=== PATIENT | male | born 1955 | race Caucasian/White ===

== ENCOUNTER 2021-04-03 19:31 | Inpatient (IN) ==
[2021-04-03 20:28] LABS: Basophils % 0.1 %; Hematocrit 43.4 % (37.5-50.1); Hemoglobin 13.9 g/dL (12.9-16.9); Immature Granulocytes % 0.6 % (0-4); Lymphocytes # 0.5 K/mcL (0.6-4.6); Lymphocytes % 7.2 %; Mean Corpuscular Hemoglobin 29.7 pg (28.0-33.3); Mean Corpuscular Volume 92.7 fL (83.0-100.0); Mean Platelet Volume 10.5 fL (9.4-12.4); Monocytes # 0.8 K/mcL (0.0-1.3); Monocytes % 11.7 %; Neutrophils # 5.6 K/mcL (1.6-8.9); Platelet Count 168 K/mcL (140-400); Red Blood Count 4.68 M/mcL (4.19-5.50); Red Cell Distribution Width 14.2 % (11.5-14.5); Segmented Neutrophils % 80.4 %; White Blood Count 6.9 K/mcL (4.3-11.1)
[2021-04-03 20:36] LABS: INR 1.2; Prothrombin Time 13.2 Seconds (9.4-12.1)
[2021-04-03 20:39] LABS: Activated Partial Thrombo Time 37.6 Seconds (26.0-36.0)
[2021-04-03 20:44] LABS: Albumin 3.2 g/dL (3.5-5.7); Albumin/Globulin Ratio 0.9 (1.1-2.2); Bilirubin,Total 0.8 mg/dL (0.3-1.0); Calcium 8.9 mg/dL (8.6-10.3); Globulin 3.6 g/dL (2.4-3.5); Potassium 3.8 mEq/L (3.5-5.1); Total Protein 6.8 g/dL (6.4-8.9)
[2021-04-03 20:48] LABS: Troponin I 0.07 ng/mL (< 0.04)
[2021-04-03] MEDS ORDERED: 0.9 % Sodium Chloride 1,000 ML IV ONE (21:20)
[2021-04-04 01:28] LABS: Bilirubin,Urine Negative (Negative); Blood,Urine Trace-lysed (Negative); Clarity,Urine Clear (Clear); Color,Urine Yellow (Yellow); Glucose,Urine (UA) 500 mg/dL (Normal); Ketones,Urine Negative (Negative); Leukocyte Esterase,Urine Negative (Negative); Nitrite,Urine Negative (Negative); Protein,Urine >=300 mg/dL (Neg-Trace); Specific Gravity,Urine >= 1.030 (1.010-1.025); Urobilinogen,Urine Normal (Normal)
[2021-04-04 01:31] LABS: Bacteria,Urine None Seen per hpf (None-Few); Hyaline Casts,Urine Few per lpf (None Seen); RBC,Urine 0-3 per hpf (0-3); Squamous Epithelial Cell,Urine Few per hpf (None-Few); WBC,Urine 0-3 per hpf (0-3)
[2021-04-04] MEDS ORDERED: Naloxone 0.4 MG/ML INJ IVP PRN (01:46)
[2021-04-04] MEDS ORDERED: Nitroglycerin 0.4 MG TAB.SUBL SL PRN (01:46)
[2021-04-04] MEDS ORDERED: Benzonatate 100 MG CAPSULE PO PRN (02:16)
[2021-04-04] MEDS ORDERED: D5% in Water 1,000 ML IVC PRN (03:18)
[2021-04-04] MEDS ORDERED: *HR* Dextrose 50 % in Water (Syg) 50 ML SYRINGE IVP PRN (03:18)
[2021-04-04] MEDS ORDERED: Dextrose Gel 15 GM/37.5 ML TUBE PO PRN ×2 (03:18)
[2021-04-04] MEDS: hydrALAZINE 25 MG TABLET PO SCH ×3 (05:38→21:18)
[2021-04-04 06:13] LABS: Basophils % 0.2 %; Hematocrit 42.7 % (37.5-50.1); Hemoglobin 13.5 g/dL (12.9-16.9); Immature Granulocytes % 0.7 % (0-4); Lymphocytes # 0.4 K/mcL (0.6-4.6); Mean Corpuscular HGB Conc 31.6 g/dL (31.6-35.5); Mean Corpuscular Hemoglobin 29.5 pg (28.0-33.3); Mean Corpuscular Volume 93.4 fL (83.0-100.0); Mean Platelet Volume 10.7 fL (9.4-12.4); Monocytes # 0.3 K/mcL (0.0-1.3); Monocytes % 5.9 %; Neutrophils # 3.7 K/mcL (1.6-8.9); Platelet Count 142 K/mcL (140-400); Red Blood Count 4.57 M/mcL (4.19-5.50); Segmented Neutrophils % 84.2 %; White Blood Count 4.4 K/mcL (4.3-11.1)
[2021-04-04 06:35] LABS: Calcium 8.1 mg/dL (8.6-10.3)
[2021-04-04 07:17] LABS: Troponin I 0.07 ng/mL (< 0.04)
[2021-04-04] MEDS ORDERED: Insulin LISPRO 300 UNITS/3 ML VIAL SUBQ SCH ×4 (08:00→21:00)
[2021-04-04] MEDS: Insulin LISPRO 300 UNITS/3 ML VIAL SUBQ SCH ×4 (08:53→21:17)
[2021-04-04] MEDS: amLODIPine 5 MG TABLET PO SCH (08:55)
[2021-04-04] MEDS: Aspirin Enteric Coated 81 MG Tablet PO SCH (08:55)
[2021-04-04] MEDS: Isosorbide MONOnitrate (24 HR) 30 MG TAB.ER.24H PO SCH (08:55)
[2021-04-04] MEDS: Metoprolol XL (24 HR) Succ 50 MG TAB.ER.24H PO SCH (08:55)
[2021-04-04] MEDS: Fenofibrate 54 MG TABLET PO SCH (08:56)
[2021-04-04] MEDS: Gabapentin 400 MG CAPSULE PO SCH ×2 (08:56→21:18)
[2021-04-04] MEDS ORDERED: Furosemide 40 MG TABLET PO SCH (09:00)
[2021-04-04] MEDS ORDERED: Ranolazine 500 MG TAB.ER.12H PO SCH (09:00)
[2021-04-04] MEDS: cefTRIAXone 1,000 MG in Water for inj. (sterile) 10 ML IVP SCH (17:30)
[2021-04-04 19:12] LABS: C-Reactive Protein 104 mg/L (Less than 10); Estimated Average Glucose 177 mg/dl; Hemoglobin A1C 7.8 %
[2021-04-04 19:29] LABS: Ferritin 184 ng/mL (20-250)
[2021-04-04] MEDS ORDERED: Insulin DETEMIR 100 UNIT/ML per UNIT SUBQ ONE ×2 (20:45→21:00)
[2021-04-04] MEDS ORDERED: Insulin DETEMIR 100 UNIT/ML X5UNITS SUBQ SCH (21:00)
[2021-04-04] MEDS ORDERED: Insulin DETEMIR 100 UNIT/ML X5UNITS SUBQ ONE (21:00)
[2021-04-05] MEDS: hydrALAZINE 25 MG TABLET PO SCH ×3 (05:43→21:23)
[2021-04-05] MEDS: Acetaminophen 325 MG TABLET PO PRN ×2 (05:49→21:23)
[2021-04-05 06:07] LABS: Hematocrit 42.9 % (37.5-50.1); Hemoglobin 13.4 g/dL (12.9-16.9); Mean Corpuscular HGB Conc 31.2 g/dL (31.6-35.5); Mean Corpuscular Hemoglobin 29.1 pg (28.0-33.3); Mean Corpuscular Volume 93.3 fL (83.0-100.0); Mean Platelet Volume 10.9 fL (9.4-12.4); Platelet Count 168 K/mcL (140-400); Red Cell Distribution Width 13.6 % (11.5-14.5); White Blood Count 9.1 K/mcL (4.3-11.1)
[2021-04-05 06:42] LABS: Albumin 3.1 g/dL (3.5-5.7); Albumin/Globulin Ratio 0.9 (1.1-2.2); Bilirubin,Total 0.6 mg/dL (0.3-1.0); Calcium 8.3 mg/dL (8.6-10.3); Globulin 3.4 g/dL (2.4-3.5); Potassium 3.8 mEq/L (3.5-5.1); Total Protein 6.5 g/dL (6.4-8.9)
[2021-04-05 06:46] LABS: Magnesium 1.9 mg/dL (1.6-2.6)
[2021-04-05] MEDS ORDERED: Insulin DETEMIR 100 UNIT/ML X5UNITS SUBQ SCH (09:00)
[2021-04-05] MEDS: Gabapentin 400 MG CAPSULE PO SCH ×2 (09:03→21:23)
[2021-04-05] MEDS: amLODIPine 5 MG TABLET PO SCH (09:03)
[2021-04-05] MEDS: Fenofibrate 54 MG TABLET PO SCH (09:03)
[2021-04-05] MEDS: Aspirin Enteric Coated 81 MG Tablet PO SCH (09:03)
[2021-04-05] MEDS: Metoprolol XL (24 HR) Succ 50 MG TAB.ER.24H PO SCH (09:03)
[2021-04-05] MEDS: cefTRIAXone 1,000 MG in Water for inj. (sterile) 10 ML IVP SCH (09:04)
[2021-04-05] MEDS: Isosorbide MONOnitrate (24 HR) 30 MG TAB.ER.24H PO SCH (09:04)
[2021-04-05] MEDS: Insulin DETEMIR 100 UNIT/ML X5UNITS SUBQ SCH ×2 (09:08→21:11)
[2021-04-05] MEDS: Insulin LISPRO 300 UNITS/3 ML VIAL SUBQ SCH ×6 (09:08→21:10)
[2021-04-05] MEDS: 0.9 % Sodium Chloride 1,000 ML IVC SCH (14:20)
[2021-04-06] MEDS ORDERED: Melatonin 3 MG TABLET PO PRN (00:26)
[2021-04-06] MEDS: 0.9 % Sodium Chloride 1,000 ML IVC SCH (03:31)
[2021-04-06] MEDS: hydrALAZINE 25 MG TABLET PO SCH (04:02)
[2021-04-06] MEDS ORDERED: Acetaminophen IV 500 MG/50 ML BAG IVPB ONE (04:34)
[2021-04-06] MEDS ORDERED: Acetaminophen 325 MG TABLET PO PRN (04:42)
[2021-04-06] MEDS ORDERED: *HR* Heparin 5,000 UNIT/ML VIAL SQ SCH ×2 (04:45→14:00)
[2021-04-06 05:03] LABS: ABG Base Excess -1 mEq/L (-2 to 3); ABG HCO3 27 mEq/L (21-27); ABG Oxygen Saturation 87 % (95-98); ABG PCO2 54 mmHg (35-45); ABG PO2 59 mmHg (85-104); ABG TCO2 28 mEq/L (20-26)
[2021-04-06 05:47] LABS: Hematocrit 42.5 % (37.5-50.1); Hemoglobin 13.2 g/dL (12.9-16.9); Mean Corpuscular HGB Conc 31.1 g/dL (31.6-35.5); Mean Corpuscular Hemoglobin 28.8 pg (28.0-33.3); Mean Corpuscular Volume 92.8 fL (83.0-100.0); Platelet Count 184 K/mcL (140-400); Red Blood Count 4.58 M/mcL (4.19-5.50); Red Cell Distribution Width 13.8 % (11.5-14.5); White Blood Count 13.6 K/mcL (4.3-11.1)
[2021-04-06 05:59] LABS: Albumin 2.9 g/dL (3.5-5.7); Albumin/Globulin Ratio 0.9 (1.1-2.2); Bilirubin,Total 0.6 mg/dL (0.3-1.0); Calcium 7.7 mg/dL (8.6-10.3); Globulin 3.3 g/dL (2.4-3.5); Magnesium 1.8 mg/dL (1.6-2.6); Potassium 3.8 mEq/L (3.5-5.1); Total Protein 6.2 g/dL (6.4-8.9)
[2021-04-06] MEDS ORDERED: *HR* LORazepam 2 MG/ML VIAL IVP ONE (07:41)
[2021-04-06] MEDS ORDERED: *HR* LORazepam 2 MG/ML VIAL ONE (07:42)
[2021-04-06] MEDS: Insulin LISPRO 300 UNITS/3 ML VIAL SUBQ SCH ×2 (07:51)
[2021-04-06] MEDS ORDERED: Furosemide 40 MG/4 ML VIAL IVP ONE (09:47)
[2021-04-06] MEDS ORDERED: Dexamethasone Sodium Phos/PF 10 MG/ML VIAL IVP ONE (09:48)
[2021-04-06] MEDS: cefTRIAXone 1,000 MG in Water for inj. (sterile) 10 ML IVP SCH (10:13)
[2021-04-06] MEDS: Isosorbide MONOnitrate (24 HR) 30 MG TAB.ER.24H PO SCH (10:13)
[2021-04-06] MEDS: Fenofibrate 54 MG TABLET PO SCH (10:13)
[2021-04-06] MEDS: amLODIPine 5 MG TABLET PO SCH (10:14)
[2021-04-06] MEDS: Gabapentin 400 MG CAPSULE PO SCH (10:14)
[2021-04-06] MEDS: Aspirin Enteric Coated 81 MG Tablet PO SCH (10:14)
[2021-04-06] MEDS: Metoprolol XL (24 HR) Succ 50 MG TAB.ER.24H PO SCH (10:14)
[2021-04-06] MEDS: Insulin DETEMIR 100 UNIT/ML X5UNITS SUBQ SCH (10:15)
[2021-04-06 11:36] VITALS: BP 136/75; PULSE 76; RESP 14; TEMP 98.9; O2SAT 93
[2021-04-07] MEDS ORDERED: Dexamethasone Sodium Phos/PF 10 MG/ML VIAL IVP SCH (09:00)
== END 2021-04-06 13:18 | disposition short-term general hospital (02) | DRG 177 ==
LOC: EMEROOGRE 19:31 → INPGRE 19:31
PROVIDERS: ADMIT Family Medicine; ATTEND Family Medicine